=== PATIENT | female | born 2000 | race Caucasian/White ===

== ENCOUNTER 2019-05-26 18:30 | Emergency (ER) | payer BC, OTHER ==
[~2019-05-26] VITALS: Ht 165.1 cm; Wt 90.9 kg
[2019-05-26 19:25] LABS: BASO % 0.2 % (0.0-1.0); EOS % 0.3 % (0.0-3.0); HEMATOCRIT 41.1 % (36.0-47.0); HEMOGLOBIN 13.9 g/dl (12.0-15.5); LYMPH # 2.5 10^3/uL (1.5-6.5); LYMPH % 21.4 % (24.0-44.0); MEAN CORPUSCULAR HEMOGLOBIN 28.2 pg (27.0-33.0); MEAN CORPUSCULAR HGB CONC 33.8 g/dl (32.0-36.5); MEAN CORPUSCULAR VOLUME 83.4 fl (80.0-96.0); MONO # 0.6 10^3/uL (0.0-0.8); MONO % 4.9 % (0.0-5.0); NEUTROPHILS # 8.5 10^3/uL (1.8-7.7); NEUTROPHILS % 72.9 % (36.0-66.0); PLATELET COUNT, AUTOMATED 288 10^3/uL (150-450); RED BLOOD COUNT 4.93 10^6/uL (4.00-5.40); WHITE BLOOD COUNT 11.6 10^3/uL (4.0-10.0)
[2019-05-26 19:43] LABS: BLOOD UREA NITROGEN 17 MG/DL (7-18); CALCIUM LEVEL 9.6 MG/DL (8.5-10.1); CARBON DIOXIDE LEVEL 22 MEQ/L (21-32); CHLORIDE LEVEL 108 MEQ/L (98-107); CK-MB VALUE MASS < 1.0 NG/ML (<3.6); CPK CREATINE PHOSPHOKINASE 88 U/L (26-192); CREATININE FOR GFR 1.01 MG/DL (0.55-1.30); GLUCOSE, FASTING 106 MG/DL (70-100); MB/CK RELATIVE INDEX 1.14 (< OR =4); POTASSIUM SERUM 3.6 MEQ/L (3.5-5.1); SODIUM LEVEL 140 MEQ/L (136-145); TROPONIN I < 0.02 NG/ML (< 0.10)
[2019-05-26 20:28] LABS: HCG, SERUM QUALITATIVE NEGATIVE (NEGATIVE)
[2019-05-26] MEDS ORDERED: LORazepam 0.5 MG TAB PO STA (21:09)
[2019-05-26] MEDS ORDERED: HYDR50TA70 PO (21:47)
[2019-05-26 22:20] VITALS: BP 138/70
[2019-05-26 22:29] LABS: FREE T4 1.29 NG/DL (0.78-1.33)
--- NOTE | 2019-05-27 21:32 | ECGEPIP ---
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
== END 2019-05-26 22:19 | disposition home or self-care (01) ==
LOC: M ED 18:30
DX: F41.9 Anxiety disorder, unspecified (principal)

== ENCOUNTER → 2019-05-26 | Outpatient (CLI) | payer BC, OTHER ==
[~2019-05-26] MED LIST: HYDR50TA70 PO
--- NOTE | 2019-05-27 09:05 | REP ---
HISTORY: Chest pain. COMPARISON: None. FINDINGS: The superior mediastinal structures are midline. The cardiac silhouette is unremarkable in size, shape and position. The diaphragmatic surfaces of the lungs are regular and the costophrenic angles are clear. The pulmonary fairchild are clear. The imaged osseous structures are intact. IMPRESSION: There is no acute cardiopulmonary disease. Electronically Signed by Humphrey Wheat DO 05/27/2019 10:02 A
== END ==
LOC: M LRY 17:31
PROVIDERS: ATTEND Physician Assistant
DX: R07.9 Chest pain, unspecified (principal)